=== PATIENT | female | born 1985 ===

== ENCOUNTER 2024-07-30 09:03 | Outpatient (CLI) | payer OTHER | END 2024-07-30 09:05 | disposition home or self-care (01) | LOC: PRENATAL 09:03 | PROVIDERS: ATTEND Obstetrics & Gynecology Maternal & Fetal Medicine | DX: O36.80X0 Pregnancy with inconclusive fetal viability, not applicable or unspecified (principal); Z36.82 Encounter for antenatal screening for nuchal translucency; O09.529 Supervision of elderly multigravida, unspecified trimester; O34.219 Maternal care for unspecified type scar from previous cesarean delivery; O10.019 Pre-existing essential hypertension complicating pregnancy, unspecified trimester; Z14.8 Genetic carrier of other disease; Z3A.14 14 weeks gestation of pregnancy ==

== ENCOUNTER 2025-01-05 13:27 | Inpatient (IN) | payer OTHER ==
[~2025-01-05] VITALS: Ht 157.5 cm; Wt 3.6 kg
[2025-01-05] MEDS ORDERED: PRENATABS RX T1 EACH PO (14:21)
[2025-01-05 14:38] LABS: URINE APPEARANCE Clear; URINE BILIRRUBIN Negative (NEGATIVE); URINE BLOOD NHT; URINE COLOR Yellow; URINE GLUCOSE Negative (NEGATIVE); URINE KETONE 15 (NEGATIVE); URINE LEUKOCYTE Small; URINE NITRATE Negative; URINE PROTEIN Trace (NEGATIVE); URINE UROBILINOGEN 1.0 E.U./dl
[2025-01-05 14:41] LABS: URINE BACTERIA 1287.4 uL (0.0-1933); URINE EPITHELIAL CELLS 60.7 uL (0.0-38.8); URINE RBC 12.3 uL (0.0-20.8); URINE WBC 65.9 uL (0.0-23.2)
[2025-01-05 14:58] LABS: URINE CAST 0.29 uL (0.0-1.40)
[2025-01-05 15:10] LABS: INR 0.94
[2025-01-07] MEDS ORDERED: LABETALOL HCL100 MG PO (09:36)
[2025-01-07] MEDS ORDERED: MAXFE CAPLET1 EAC1 PO (09:37)
[2025-01-07 09:43] VITALS: BP 128/83
[2025-01-07] MEDS ORDERED: OXYTOCIN 10 UNITS/ML VIAL ONE ×2 (11:13→17:37)
[2025-01-07] MEDS ORDERED: CLINDAMYCIN PHOSPHATE 150 MG/ML (900mg) ONE (11:13)
[2025-01-07] MEDS ORDERED: ERYTHROMYCIN BASE OPHT 1GM EACH TUBE OP ONE (11:13)
[2025-01-07] MEDS ORDERED: MORPHINE SULFATE 4 MG/ML CARTRIDGE IV PRN (14:30)
[2025-01-07] MEDS ORDERED: PROMETHAZINE HCL 25 MG/ML AMPUL IM PRN (14:30)
[2025-01-07] MEDS ORDERED: OXYTOCIN 1,000 ML IV SCH (15:30)
[2025-01-07] MEDS ORDERED: NALOXONE HCL 0.4 MG/ML AMPUL IV PRN (15:30)
[2025-01-07 20:17] VITALS: BP 134/85
[2025-01-08 01:58] VITALS: BP 124/80
[2025-01-08 06:14] LABS: BASO % 0.2 % (0.1-1.2); EOS # 0.04 (0.04-0.54); EOS % 0.4 % (0.7-7.0); LYMPH # 1.37 (1.18-3.74); LYMPH % 14.9 % (19.3-53.1); MEAN PLATELET VOLUME 11.50 fl (9.4-12.4); MONO # 0.76 (0.24-0.82); MONO % 8.3 % (4.7-12.5); NEUT # 6.95 (1.56-6.13); NEUT % 75.9 % (34.0-71.1); RED CELL DISTRIBUTION WIDTH 13.6 % (11.6-14.4)
[2025-01-08 08:00] VITALS: BP 112/80
[2025-01-08] MEDS ORDERED: PNV,CALCIUM 72/IRON/FOLIC ACID 1 TAB TABLET PO SCH (09:00)
[2025-01-08] MEDS ORDERED: DOCUSATE SODIUM 100MG CAP PO SCH (09:00)
[2025-01-08] MEDS ORDERED: SIMETHICONE 125 MG CAPSULE PO SCH (09:00)
[2025-01-08] MEDS ORDERED: ACETAMINOPHEN 325 MG TABLET PO SCH (12:00)
[2025-01-08] MEDS ORDERED: OxyCODONE HCL 5 MG TABLET (ROXICODONE) PO PRN (12:00)
[2025-01-08 17:32] VITALS: BP 137/80
[2025-01-09 01:13] VITALS: BP 130/89
[2025-01-09 08:00] VITALS: BP 130/91
[2025-01-09 18:49] VITALS: BP 111/74
[2025-01-10 00:40] VITALS: BP 126/80
[2025-01-10 09:49] VITALS: BP 121/81
[2025-01-10] MEDS ORDERED: COLACE100 MG PO (09:52)
[2025-01-10] MEDS ORDERED: IBUPROFEN800 MG PO (09:52)
== END 2025-01-10 16:44 | disposition home or self-care (01) | DRG 788 ==
LOC: EDBD 01-07 10:00 → O/R 01-07 10:00 → LDR 01-07 13:26 → OB/GYN 01-07 14:23 → LDR 01-07 17:54 → OB/GYN 01-10 16:44
PROVIDERS: ADMIT Obstetrics & Gynecology; ATTEND Obstetrics & Gynecology
PROC: 4A1HXCZ Monitoring of Products of Conception, Cardiac Rate, External Approach (ICD-10-PCS; 2025-01-07)
PROC: 10D00Z1 Extraction of Products of Conception, Low, Open Approach (ICD-10-PCS; principal; 2025-01-07 14:15)
DX: O11.4 Pre-existing hypertension with pre-eclampsia, complicating childbirth (principal); O10.02 Pre-existing essential hypertension complicating childbirth; O34.211 Maternal care for low transverse scar from previous cesarean delivery; O99.824 Streptococcus B carrier state complicating childbirth; O36.63X0 Maternal care for excessive fetal growth, third trimester, not applicable or unspecified; Z3A.37 37 weeks gestation of pregnancy; Z37.0 Single live birth